=== PATIENT | female | born 1985 | race Caucasian/White ===

== ENCOUNTER → 2016-08-18 | Outpatient (CLI) | payer OTHER ==
[~2016-08-18] MED LIST: AZEL30SP NAE; BUDESUS; BUSP5TAB59 PO; LORA-741 PO; MTR600X PO; OXYC5TAB PO; PANT40TA PO
[2016-08-18 14:48] LABS: URINE APPEARANCE CLEAR (CLEAR); URINE BILIRUBIN NEG (NEG); URINE COLOR YELLOW; URINE EPITHELIAL CELL AUTO >30 /lpf (0-5); URINE NITRITE NEG (NEG); URINE SPECIFIC GRAVITY 1.018 (1.000-1.030); UROBILINOGEN NEG (NEG)
[2016-08-18 14:51] LABS: MANUAL MICROSCOPIC REQUIRED? NO; REVIEW REQ? NO
== END | disposition home or self-care (01) ==
LOC: C.LABBC 11:58
PROVIDERS: ATTEND Family Medicine
DX: R35.0 Frequency of micturition (principal)

== ENCOUNTER → 2016-08-29 | Outpatient (CLI) | payer OTHER | END | disposition home or self-care (01) | LOC: C.LABSPEC 17:32 | PROVIDERS: ATTEND Nurse Practitioner Family | DX: R35.0 Frequency of micturition (principal) ==

== ENCOUNTER → 2016-09-28 | Outpatient (CLI) | payer OTHER ==
--- NOTE | 2016-09-28 13:07 | DIAGNOSTIC IMAGING REPORT ---
FUSION CT SINUSES W/O CLINICAL HISTORY: Headache and frontal sinus pain. COMPARISON STUDY: No previous studies for comparison. FINDINGS: There is no evidence of hydrocephalus. There is a left maxillary sinus retention cyst. Mastoid air cells are clear. There is a small amount of bubbly material within a posterior right ethmoid air cell. There is a partially opacified right anterior ethmoid air cell. There are no air-fluid levels to indicate acute sinusitis. The ostiomeatal units are patent bilaterally. There are bilateral Supriya cells. There is partial pneumatization of the right middle turbinate. There is S-shaped nasal septal deviation. The frontoethmoidal recesses are patent IMPRESSION: 1. Mild mucosal disease. No evidence of acute sinusitis 2. The ostiomeatal units are patent bilaterally Electronically signed by: Tevin Fisher M.D. 09/28/2016 1:06 PM Dictated Date/Time: 09/28/2016 1:03 PM
== END | disposition home or self-care (01) ==
LOC: C.CTS 12:30
PROVIDERS: ATTEND Physician Assistant
DX: J34.89 Other specified disorders of nose and nasal sinuses (principal)

== ENCOUNTER → 2017-04-25 | Outpatient (CLI) | payer OTHER ==
[2017-04-25 09:41] LABS: BASO % 0.3 %; BASO ABS # 0.02 K/uL (0-0.2); COMPLETE YES; EOS % 4.1 %; IG% 0.2 %; LYMPH % 26.2 %; LYMPH ABS # 1.65 K/uL (1.2-3.4); MEAN CELL VOLUME 85.2 fL (80-100); MEAN CORPUSCULAR HEMOGLOBIN 28.2 pg (25-34); MEAN CORPUSCULAR HGB CONC 33.1 g/dl (32-36); MEAN PLATELET VOLUME 8.9 fL (7.4-10.4); MONO % 5.6 %; NEUT % 63.6 %; PLATELET COUNT 298 K/uL (130-400); RED BLOOD COUNT 4.58 M/uL (4.2-5.4)
[2017-04-25 10:10] LABS: BLOOD UREA NITROGEN 8 mg/dl (7-18); BUN/CREATININE RATIO 11.1 (10-20); CARBON DIOXIDE 30 mmol/L (21-32); CHLORIDE 103 mmol/L (98-107); GLUCOSE 89 mg/dl (70-99); POTASSIUM 3.9 mmol/L (3.5-5.1); SODIUM 137 mmol/L (136-145)
[2017-04-25 10:11] LABS: CHOLESTEROL 267 mg/dl (0-200); CHOLESTEROL/HDL RATIO 4.6; HDL CHOLESTEROL 58 mg/dl; LDL CHOLESTEROL CALCULATED 182 mg/dl; TRIGLYCERIDES 135 mg/dl (0-150); VERY LOW DENSITY LIPOPROT CALC 27 mg/dl
[2017-04-25 12:44] LABS: ESTIMATED AVERAGE GLUCOSE 117 mg/dl; HA1C FLAG Normal (Normal)
== END | disposition home or self-care (01) ==
LOC: C.LAB1850 08:40
PROVIDERS: ATTEND Nurse Practitioner Adult Health
DX: Z00.00 Encounter for general adult medical examination without abnormal findings (principal); E28.2 Polycystic ovarian syndrome; E88.81 Metabolic syndrome and other insulin resistance; D64.9 Anemia, unspecified

== ENCOUNTER → 2017-10-04 | Outpatient (CLI) | payer OTHER ==
[2017-10-04 13:24] LABS: ALBUMIN 3.9 gm/dl (3.4-5.0); ALT/SGPT 38 U/L (12-78); AST/SGOT 22 U/L (15-37); BLOOD UREA NITROGEN 8 mg/dl (7-18); CALCIUM 8.8 mg/dl (8.5-10.1); CARBON DIOXIDE 28 mmol/L (21-32); GLUCOSE 112 mg/dl (70-99); POTASSIUM 3.7 mmol/L (3.5-5.1); SODIUM 139 mmol/L (136-145)
[2017-10-04 13:27] LABS: ALKALINE PHOSPHATASE 107 U/L (45-117); TOTAL PROTEIN 7.9 gm/dl (6.4-8.2)
[2017-10-04 13:33] LABS: HEMOGLOBIN A1C 5.6 % (4.5-5.6)
== END | disposition home or self-care (01) ==
LOC: C.LAB1850 11:48
PROVIDERS: ATTEND Obstetrics & Gynecology
DX: R73.03 Prediabetes (principal); E28.2 Polycystic ovarian syndrome